=== PATIENT | female | born 1975 | race Caucasian/White ===

== ENCOUNTER 2022-03-11 08:28 | Outpatient (CLI) | payer OTHER ==
[2022-03-11 10:03] LABS: Hemoglobin 12.3 g/dL (12.0-15.5); Mean Corpuscular Hemoglobin 28.6 pg (27.0-33.0); Mean Corpuscular Volume 89.3 fl (81.6-98.3); Mean Platelet Volume 11.5 fl (7.4-10.4); Platelet Count 218 10x3/uL (150-450); RBC Distribution Width 14.6 % (11.5-14.5)
[2022-03-11 10:21] LABS: BHCG - Serum Negative (NEGATIVE); Pregs Control Background? CLEAR/WHITE (CLR/WHITE); Pregs Control Bar Appear? YES (CONTROL BAR)
== END 2022-03-11 08:29 | disposition home or self-care (01) ==
LOC: CSHLAB 08:28
PROVIDERS: ATTEND Obstetrics & Gynecology
DX: Z01.812 Encounter for preprocedural laboratory examination (principal); Z20.822 Contact with and (suspected) exposure to COVID-19; N83.202 Unspecified ovarian cyst, left side; N80.0 Endometriosis of uterus
CPT/HCPCS: 84703; 85027; 86850; 86900; 86901; 87811

== ENCOUNTER 2022-03-16 08:04 | Day surgery (SDC) | payer OTHER ==
[2022-03-11 10:03] LABS: Hemoglobin 12.3 g/dL (12.0-15.5); Mean Corpuscular Hemoglobin 28.6 pg (27.0-33.0); Mean Corpuscular Volume 89.3 fl (81.6-98.3); Mean Platelet Volume 11.5 fl (7.4-10.4); Platelet Count 218 10x3/uL (150-450); RBC Distribution Width 14.6 % (11.5-14.5)
[2022-03-11 10:21] LABS: BHCG - Serum Negative (NEGATIVE); Pregs Control Background? CLEAR/WHITE (CLR/WHITE); Pregs Control Bar Appear? YES (CONTROL BAR)
[2022-03-14 12:40] VITALS: BMI 35.4
[2022-03-16] MEDS ORDERED: CeleCOXIB 100 MG CAP ONE (08:20)
[2022-03-16] MEDS ORDERED: Gabapentin 300 MG CAP ONE (08:20)
[2022-03-16] MEDS ORDERED: Famotidine/PF 20 mg/2ml Vial ONE (08:21)
[2022-03-16] MEDS ORDERED: PROPOFOL 20 ML ONE (09:13)
[2022-03-16] MEDS ORDERED: Lidocaine 1% PF 5 ML VIAL ONE (09:14)
[2022-03-16] MEDS ORDERED: Midazolam HCl 2 mg/2 ml Vial ONE (09:14)
[2022-03-16] MEDS ORDERED: Rocuronium Bromide 10 MG/ML (10ML VIAL) ONE (09:14)
[2022-03-16] MEDS ORDERED: Glycopyrrolate 0.2 MG/ML 5 ML SYRINGE ONE (09:14)
[2022-03-16] MEDS ORDERED: Fentanyl 250 MCG/5 ML VIAL ONE (09:14)
[2022-03-16] MEDS ORDERED: Ketorolac Tromethamine 30 MG/ML VIAL ONE (09:14)
[2022-03-16] MEDS ORDERED: Dexamethasone 20 MG/5 ML VIAL ONE (09:14)
[2022-03-16] MEDS ORDERED: Ondansetron PF 4 MG/2 ML Vial ONE (09:14)
[2022-03-16] MEDS ORDERED: Bupivacaine PF 0.5% 30 ML VIAL ONE (09:15)
[2022-03-16] MEDS ORDERED: EPINEPHrine 1 MG/ML AMP ONE (09:15)
[2022-03-16] MEDS ORDERED: CEFAZOLIN 2 GM VIAL ONE (09:45)
[2022-03-16] MEDS ORDERED: Fentanyl 100 MCG/2 ML VIAL ONE (12:01)
== END 2022-03-16 13:25 | disposition home or self-care (01) ==
LOC: CSHSDC 08:04
PROVIDERS: ATTEND Obstetrics & Gynecology
PROC: 0UT74ZZ Resection of Bilateral Fallopian Tubes, Percutaneous Endoscopic Approach (ICD-10-PCS; principal; 2022-03-16)
PROC: 0UT94ZZ Resection of Uterus, Percutaneous Endoscopic Approach (ICD-10-PCS; principal; 2022-03-16)
DX: N80.0 Endometriosis of uterus (principal); N72 Inflammatory disease of cervix uteri; N70.11 Chronic salpingitis; N83.8 Other noninflammatory disorders of ovary, fallopian tube and broad ligament; K66.0 Peritoneal adhesions (postprocedural) (postinfection); E78.5 Hyperlipidemia, unspecified; F41.9 Anxiety disorder, unspecified; Z79.899 Other long term (current) drug therapy; Z20.822 Contact with and (suspected) exposure to COVID-19
CPT/HCPCS: 84703; 85027; 86850; 86900; 86901; 87811; 88307; C1776; J0171; J0690; J1100; J1885; J2250; J2405; J2704; J3010; S0020; S0028